=== PATIENT | female | born 1970 | race Caucasian/White ===

== ENCOUNTER → 2023-05-08 | Outpatient (CLI) | payer OTHER, SELFPAY ==
--- NOTE | 2023-05-08 | CYSPIN_PTH ---
PATIENT: ONEIL ECHEVERRIA LOC: [facility] U#:[id number] AGE/SX: 52/F ROOM: RE05/08/[address]: Dr. Benjamin Kaur MD : 1970 BED: DIS: 05/08/2023 SPEC #: [id number] RECD: 05/09/23 08:52 STATUS: PATRICK REApolinar #: [id number] JAROD: 05/08/23 00:[address]: Benjamin Kaur DEPT: CYTOLOGY RECD BY: Esthela Fernando ENTERED: 05/09/23 08:52 SP TYPE: CYSPIN FL OTHR DR: Dr. Ulisses Rae MD Tissues: Urine Procedures: Pap Stain (control) Special Stain Group II Cytospin Fluid HEADER OPERATION: Not noted PRE-OP DIAGNOSIS: Abnormal imaging TISSUE SUBMITTED: Urine for cytology DIAGNOSIS CYTOLOGY Urine for cytology (cytospin): Negative for high-grade urothelial carcinoma (HIGUC), [facility] Category II. See comment. SJ:ainsley 05/09/2023 COMMENT Clinical correlation and appropriate follow up are necessary. The [facility] System for urine cytology diagnostic categorization was used in the evaluation of this case. CYTOLOGY STUDY Slides are reviewed. CYTOLOGY GROSS Received is 30 ml of cloudy dark gold-yellow fluid labeled with the patient's name and and designated per the requisition as urine. Submitted for cytology preparation. / ainsley 05/08/2023 TC:4 CPT: 23475
[2023-05-08 16:24] LABS: Cytology, Body Fluid / CSF SEE PATHOLOGY REPORT
== END | disposition home or self-care (01) ==
PROVIDERS: PCP Family Medicine; Referring Provider Urology; Visit Provider Urology
DX: R93.41 Abnormal radiologic findings on diagnostic imaging of renal pelvis, ureter, or bladder (principal)
CPT/HCPCS: 88108; 88313